=== PATIENT | male | born 1940 | race African-American/Black ===

== ENCOUNTER 2024-02-20 13:00 | Outpatient (AMB) | payer MEDICARE, SELFPAY ==
--- NOTE | 2024-02-20 13:01 | MHC.OFFVIS ---
Intake Visit Reasons: urinary incontinence Intake Note: New Patient presents for initial visit for incontinence Urology Medications: finasteride Blood Thinner: aspirin PVR: 10ml's Software Validation Engineer Required: No Accompanied by: Self / Same As Patient Allergies No Known Allergies [No Known Allergies*] Allergy (Unverified 02/20/24 13:41) Medication List - Last Reconciled 02/20/24 by CHARLOTTE Li aspirin 81 mg PO DAILY atorvastatin 80 mg PO DAILY asuotaqzi-xcszdlbu-cjgeurw ala 50-200-25 mg (Biktarvy) 1 tab PO DAILY cholecalciferol (vitamin D3) (Vitamin D3) 10 mcg PO DAILY finasteride 5 mg PO DAILY HPI Comments Details: Migue is a pleasantly confused 83-year-old male patient of Dr. Krause. He has a past medical history of right inguinal hernia, urinary incontinence, underweight, tobacco dependence, pulmonary nodule, hyperlipidemia, gait instability, elevated PSA, dementia, chronic kidney disease stage 3, CVA, bladder stones, BPH, and asymptomatic proteinuria. He presents to the office today as a new patient for urinary incontinence. In discussion with the patient today he reports noting episodes of unsensed urinary incontinence while sleeping 2-3 times per night. He reports these episodes are not each night however they are frequent. He otherwise denies any bothersome urinary issues while he is awake. In review of patient's chart it appears he has a history of an elevated PSA and is on finasteride however when asked he is unsure as to this past medical history. He reports he has no family however upon checkout it appears niece is in waiting room. We discussed at length potential causes of unsensed urinary incontinence while sleeping given patient's history of dementia as well as CVA. Will obtain retroperitoneal ultrasound and PSA for further assessment evaluation. In office urinalysis was unable to be performed as patient was unable to void however PVR 10 mL. When asked he denies urinary urgency, urinary frequency, hematuria, dysuria, foul smelling urine, changes to urinary stream, flank pain, fever, and or chills. At times throughout today's assessment patient is very vague. [facility] Medical History (Updated 02/21/24 @ 10:06 by CHARLOTTE Li) Right inguinal hernia Urinary incontinence Underweight Tobacco dependence Right hand weakness Pulmonary nodule Inguinal hernia Hyperlipidemia Glucose intolerance Gait instability Frailty Diverticulosis of sigmoid colon Dementia, vascular COVID-19 COPD with emphysema Cigarette smoker Chronic kidney disease, stage 3 Cerebrovascular disease Carotid stenosis Bladder stones Benign prostatic hyperplasia Asymptomatic proteinuria Abnormal weight loss Surgical History (Updated 02/20/24 @ 13:58 by Jaylon Seymour) History of appendectomy History of inguinal herniorrhaphy Review of Systems Const Unobtainable due to mental status Physical Exam Const General: cooperative, healthy appearing, comfortable, no acute distress, well developed, alert and awake Nutritional Appearance: thin Orientation/consciousness: oriented to person Limitations: ambulation with cane HEENT Head: Yes normal to inspection, Yes normocephalic and Yes atraumatic Ears: hearing grossly normal bilaterally Eyes General: appearance normal, both eyes and all related structures Neck Neck: Yes normal visual inspection and Yes trachea midline Chest Chest palpation & inspection: normal inspection of the chest Resp Effort & Inspection: normal respiratory effort and able to speak in complete sentences Cardio Rate: regular rate GI Inspection: Yes normal to inspection General: Yes no CVA tenderness Back/Spine/Pelvis Back: no CVA tenderness Skin General skin exam: no rashes or lesions noted Neuro General: oriented to person Extrem General: Yes normal to inspection Psych Appearance: grossly normal and well kempt Mental Status: mental status grossly normal Speech and movement: Normal speech and movement present and Clear speech present Affect: normal affect Attitude: cooperative Thought process: Normal thought process present Thought content: Normal thought content present Insight: Fair insight present (Psych) Judgement: Fair judgement present (Psych) Office Procedures Post Void Residual Post Residual Void Post Void Residual (PVR): 10 01511-[id number] Void Residual by ultrasound Assessment & Plan Assessment & Plan (1) Elevated PSA: Code(s): R97.20 - Elevated prostate specific antigen [PSA] Category: Medical (2) Urinary incontinence: Code(s): R32 - Unspecified urinary incontinence Category: Medical Plan Unable to obtain urine for urinalysis however PVR 10 mL. Discussed at length potential causes for lower urinary tract symptoms patient is experiencing. Discussed obtaining retroperitoneal ultrasound for further assessment evaluation. Will obtain PSA for further assessment evaluation. Continue finasteride as prescribed. Discussed, educated, and stressed the importance of limiting fluids 2-3 hours prior to bed to decrease episodes of unsensed urinary incontinence he is experiencing Follow-up in 1-3 months with imaging and labs to be completed prior; or sooner with any issues, concerns, and or questions. Orders: Orders AMB Post Void Residual by ultrasound 02/20/24 Z13.9 - Encounter for screening, unspecified PSA,Total (Free>4and<10) Today R97.20 - Elevated prostate specific antigen [PSA] US retroperitoneal comp Today R32 - Unspecified urinary incontinence, R97.20 - Elevated prostate specific antigen [PSA] Patient Instructions: The patient had an opportunity to ask questions regarding the treatment plan. All questions were answered. Physical exam, labs, and imaging were discussed and reviewed in detail. As well as risks, benefits, and discussion of treatment choices. No major barriers to understanding were identified. The patient expressed understanding and agreement with the above treatment plan. The patient was made aware they should contact our office by phone for worsening of their current condition, the appearance of new symptoms, or with any questions or concerns. Compliance is encouraged with any medications and follow up testing that is ordered. It is a privilege to be allowed the opportunity to participate in? your urological care.? Again, if you have any questions or concerns If you have any questions or concerns please do not hesitate to contact me. The office is [phone]. This note is constructed using voice recognition software. While every effort has been made to ensure accuracy sales enablement manager errors may have been included. Yours sincerely, CHARLOTTE Li Coding Level of Care Code New Pt Level 3 (38430) Diagnoses Elevated PSA R97.20 Urinary incontinence R32 CPT Codes Post Residual Void - PVR CPT Code: 75597-Kjjr Void Residual by ultrasound ([id number])
== END 2024-02-20 13:45 | disposition home or self-care (01) ==
PROVIDERS: PCP Internal Medicine; Visit Provider Nurse Practitioner Family
DX: R97.20 Elevated prostate specific antigen [PSA] (principal); R32 Unspecified urinary incontinence
CPT/HCPCS: 99203

== ENCOUNTER → 2024-02-20 13:00 | Outpatient (BNVA) | payer MEDICARE, SELFPAY | PROVIDERS: PCP Internal Medicine; Visit Provider Nurse Practitioner Family | DX: R32 Unspecified urinary incontinence (principal); R97.20 Elevated prostate specific antigen [PSA] | CPT/HCPCS: 51798; 99202 ==

== ENCOUNTER 2024-03-27 16:35 | Outpatient (REF) | payer MEDICARE, SELFPAY ==
--- NOTE | ~2024-03-27 | US_ITS ---
EXAMINATION: US RETROPERITONEAL LIMITED (RENAL ONLY) CLINICAL INFORMATION: Elevated prostate-specific. COMPARISON: None available. TECHNIQUE: Real-time ultrasound the kidneys using grayscale and color Doppler technique.. FINDINGS: RIGHT KIDNEY: 8 x 4 x 4 cm (SAG x AP x TRV). The kidney is normal in size, contour, and echogenicity. Renal cortical thickness is normal. No calculi or focal parenchymal lesions. No hydronephrosis. LEFT KIDNEY: 7 x 4 x 5 cm (SAG x AP x TRV). The kidney is normal in size, contour, and echogenicity. Renal cortical thickness is normal. No renal calculi or hydronephrosis. There is a large 8.0 cm exophytic anechoic lesion without septations or nodular components in the left kidney. US/US retroperitoneal limited IMPRESSION: No hydronephrosis. 8.0 cm exophytic cyst, left kidney.. Electronically signed by: Brian Hicks MD 04/16/2024 01:14 PM MARILY
== END 2024-03-27 16:36 | disposition home or self-care (01) ==
LOC: HO.US 16:35
PROVIDERS: PCP Internal Medicine; Visit Provider Nurse Practitioner Family
DX: R97.20 Elevated prostate specific antigen [PSA] (principal); R32 Unspecified urinary incontinence
CPT/HCPCS: 76775

== ENCOUNTER → 2024-03-27 16:36 | Outpatient (BNV) | payer MEDICARE, SELFPAY | PROVIDERS: PCP Internal Medicine; Visit Provider Radiology Diagnostic Radiology | DX: R97.20 Elevated prostate specific antigen [PSA] (principal) | CPT/HCPCS: 76775 ==

== ENCOUNTER 2024-04-03 15:16 | Outpatient (REF) | payer MEDICARE, SELFPAY ==
--- NOTE | ~2024-04-03 | US_ITS ---
EXAMINATION: US PELVIS LIMITED (BLADDER) CLINICAL INFORMATION: Urinary incontinence. COMPARISON: None available. TECHNIQUE: Real-time imaging of the bladder. FINDINGS: BLADDER: Bladder is fluid-filled. There is a 1 cm isoechoic abnormality in the dependent portion of the bladder without flow on color Doppler interrogation. There is a 0.8 cm hyperechoic lesion in a dependent portion of the urinary bladder lumen. Bilateral ureteral jets are demonstrated. Prevoid bladder volume is 180 mL. Postvoid bladder volume is 97 mL. US/US bladder IMPRESSION: Debris versus blood products versus less likely soft tissue lesion, posterior urinary bladder lumen. Questionable intraluminal calculus. Recommend direct inspection. 97 cc urinary retention. Electronically signed by: Brian Hicks MD 04/16/2024 01:17 PM [facility]
== END 2024-04-03 15:17 | disposition home or self-care (01) ==
LOC: HO.US 15:16
PROVIDERS: PCP Internal Medicine; Visit Provider Nurse Practitioner Family
DX: R97.20 Elevated prostate specific antigen [PSA] (principal); R32 Unspecified urinary incontinence
CPT/HCPCS: 76857

== ENCOUNTER → 2024-04-03 15:20 | Outpatient (BNV) | payer MEDICARE, SELFPAY | PROVIDERS: PCP Internal Medicine; Visit Provider Radiology Diagnostic Radiology | DX: R32 Unspecified urinary incontinence (principal) | CPT/HCPCS: 76857 ==

== ENCOUNTER 2024-04-09 14:35 | Outpatient (AMB) | payer MEDICARE, SELFPAY ==
--- NOTE | 2024-04-09 14:49 | A.OFFVIS_ITS ---
Intake Visit Reasons: 2m/US/PSA Intake Note: Patient presents today for follow up visit on: incontinence, elevated psa, psa and ultrasound lab results Imaging Completed: 03/27/24 and 04/03/24 Urology Medications: finasteride Blood Thinner: aspirin PVR: 28ml's Cdl B Driver Required: No Accompanied by: Self / Same As Patient Allergies No Known Allergies [No Known Allergies*] Allergy (Unverified 04/10/24 20:39) Medication List - Last Reconciled 04/10/24 by ROMA Li-ZEV aspirin 81 mg PO DAILY atorvastatin 80 mg PO DAILY wgfdkcmcy-bcfljwyn-kgmbstw ala 50-200-25 mg (Biktarvy) 1 tab PO DAILY cholecalciferol (vitamin D3) (Vitamin D3) 10 mcg PO DAILY finasteride 5 mg PO DAILY sulfamethoxazole-trimethoprim 800-160 mg (Bactrim DS) 1 tab PO BID 10 days HPI Comments Details: Migue is a pleasantly confused 83-year-old male patient of Dr. Krause. He has a past medical history of right inguinal hernia, urinary incontinence, underweight, tobacco dependence, pulmonary nodule, hyperlipidemia, gait instability, elevated PSA, dementia, chronic kidney disease stage 3, CVA, bladder stones, BPH, and asymptomatic proteinuria. He presents to the office today for a follow up. Of note, patient was seen approximately 6 weeks ago as a new patient for urinary incontinence at which time a retroperitoneal ultrasound and PSA were ordered for further assessment evaluation. These results were reviewed with the patient today. Bilateral kidneys are normal in size, contour, and echogenicity. Right kidney with no hydronephrosis, renal calculi, and or lesions noted. Left kidney with a large 8.0 cm exophytic anechoic lesion without septations or nodular components. The bladder is fluid-filled. There is a 1 cm isoechoic abnormality in the dependent portion of the bladder. There is a 0.8 cm hypoechoic lesion in the dependent portion of the urinary bladder lumen. Bilateral ureteral jets are demonstrated. Pre void bladder volume is 180 mL. Postvoid bladder volume is a proximally 100 mL. Debris versus blood products verses likely soft tissue lesion in the posterior urinary bladder lumen. Recommending direct inspection per radiology report. PSA 04/02 10.4. We discussed at length potential causes for elevated PSA. In office urinalysis results reviewed with the patient today. 3+ leukocytes negative nitrates. In discussion with the patient today he denies any UTI like symptoms however upon discussion with his niece she reports noting increase in foul smelling urine as he has baseline urinary incontinence since his dementia diagnosis. We discussed correlation of elevated PSA with potential urinary tract infection. Patient with a previous history of an elevated PSA per PCP notes and is on finasteride. However, niece and patient are unaware of previous history. When asked he denies urinary urgency, urinary frequency, hematuria, dysuria, changes to urinary stream, flank pain, fever, and or chills. At times throughout today's assessment patient is very vague. [facility], [facility] Medical History (Updated 04/16/24 @ 21:54 by AFSHIN Li) Right inguinal hernia Urinary incontinence Underweight Tobacco dependence Right hand weakness Pulmonary nodule Inguinal hernia Hyperlipidemia Glucose intolerance Gait instability Frailty Diverticulosis of sigmoid colon Dementia, vascular COVID-19 COPD with emphysema Cigarette smoker Chronic kidney disease, stage 3 Cerebrovascular disease Carotid stenosis Bladder stones Benign prostatic hyperplasia Asymptomatic proteinuria Abnormal weight loss Surgical History History of appendectomy History of inguinal herniorrhaphy Review of Systems Const Unobtainable due to mental status Physical Exam Const General: cooperative, healthy appearing, comfortable, no acute distress, well developed, alert and awake Nutritional Appearance: thin Orientation/consciousness: oriented to person Limitations: ambulation with cane HEENT Head: Yes normal to inspection, Yes normocephalic and Yes atraumatic Ears: hearing grossly normal bilaterally Eyes General: appearance normal, both eyes and all related structures Neck Neck: Yes normal visual inspection and Yes trachea midline Chest Chest palpation & inspection: normal inspection of the chest Resp Effort & Inspection: normal respiratory effort and able to speak in complete sentences Cardio Rate: regular rate GI Inspection: Yes normal to inspection General: Yes no CVA tenderness Back/Spine/Pelvis Back: no CVA tenderness Skin General skin exam: no rashes or lesions noted Neuro General: oriented to person Extrem General: Yes normal to inspection Psych Appearance: grossly normal and well kempt Mental Status: mental status grossly normal Speech and movement: Normal speech and movement present and Clear speech present Affect: normal affect Attitude: cooperative Thought process: Normal thought process present Thought content: Normal thought content present Insight: Fair insight present (Psych) Judgement: Fair judgement present (Psych) Office Procedures Post Void Residual Post Residual Void Post Void Residual (PVR): 28 [id number] Void Residual by ultrasound Results AMB Urinalysis, Automated UA Leukoctes 500 Harini/uL Last Edit by Jaylon Seymour on 04/09/24 16:24 UA Nitrite Negative Last Edit by Jaylon Seymour on 04/09/24 16:24 UA Urobilinogen 0.2 mg/dL Last Edit by [facility] Sto[employer] Seymour on 04/09/24 16:24 UA Protein 15 mg/dL Last Edit by [email or web address] on 04/09/24 16:24 UA pH 6.0 Last Edit by [email or web address] on 04/09/24 16:24 UA Blood 0 Ranjith/uL Last Edit by [email or web address] on 04/09/24 16:24 UA Specific [place] 1.030 Last Edit by [email or web address] on 04/09/24 16:24 UA Ketone Negative Last Edit by [email or web address] on 04/09/24 16:24 UA Bilirubin 1 mg/dL Last Edit by [email or web address] on 04/09/24 16:24 UA Glucose 0 mg/dL Last Edit by [email or web address] on 04/09/24 16:24 Results Reviewed Results Reviewed: Laboratory Last Values Urine pH (Auto) 6.0 04/09/24 16:19 Specific [place] (Auto) 1.030 04/09/24 16:19 Urine Protein (Auto) 15 mg/dL 04/09/24 16:19 Glucose (UA)(Auto) 0 mg/dL 04/09/24 16:19 Urine Ketones (Auto) Negative 04/09/24 16:19 Urine Blood (Auto) 0 Ranjith/uL 04/09/24 16:19 Urine Nitrite (Auto) Negative 04/09/24 16:19 Urine Bilirubin (Auto) 1 mg/dL 04/09/24 16:19 Urine Urobilinogen (Auto) 0.2 mg/dL 04/09/24 16:19 Leukocyte Esterase (Auto) 500 Harini/uL 04/09/24 16:19 Date of Service: 03/27/24 EXAMINATION: US RETROPERITONEAL LIMITED (RENAL ONLY) FINDINGS: RIGHT KIDNEY: 8 x 4 x 4 cm (SAG x AP x TRV). The kidney is normal in size, contour, and echogenicity. Renal cortical thickness is normal. No calculi or focal parenchymal lesions. No hydronephrosis. LEFT KIDNEY: 7 x 4 x 5 cm (SAG x AP x TRV). The kidney is normal in size, contour, and echogenicity. Renal cortical thickness is normal. No renal calculi or hydronephrosis. There is a large 8.0 cm exophytic anechoic lesion without septations or nodular components in the left kidney. IMPRESSION: No hydronephrosis. 8.0 cm exophytic cyst, left kidney. Date of Service: 04/03/24 EXAMINATION: US PELVIS LIMITED (BLADDER) FINDINGS: BLADDER: Bladder is fluid-filled. There is a 1 cm isoechoic abnormality in the dependent portion of the bladder without flow on color Doppler interrogation. There is a 0.8 cm hyperechoic lesion in a dependent portion of the urinary bladder lumen. Bilateral ureteral jets are demonstrated. Prevoid bladder volume is 180 mL. Postvoid bladder volume is 97 mL. IMPRESSION: Debris versus blood products versus less likely soft tissue lesion, posterior urinary bladder lumen. Questionable intraluminal calculus. Recommend direct inspection. 97 cc urinary retention. Assessment & Plan Assessment & Plan (1) Elevated PSA: Code(s): R97.20 - Elevated prostate specific antigen [PSA] Category: Medical (2) Urinary incontinence: Code(s): R32 - Unspecified urinary incontinence Category: Medical (3) Bladder stones: Code(s): N21.0 - Calculus in bladder Category: Medical (4) Lesion of urinary bladder: Code(s): N32.9 - Bladder disorder, unspecified Category: Medical Plan In office urinalysis results reviewed with the patient and his niece today; as noted above; will send for urine culture and urine cytology. Recent PSA results reviewed with the patient and his niece today; as noted above. Recent retroperitoneal ultrasound results reviewed with the patient his niece today as noted above. We discussed at length potential causes of elevated PSA. DONALD offered however deferred. We discussed correlation of urinary tract infections and elevated PSA. Discussed in office cystoscopy to further assess bladder sludge verses bladder stones as noted on recent retroperitoneal ultrasound. Continue finasteride. Start Bactrim as discussed and prescribed. Discuss reassessment of elevated PSA status post completion of antibiotic therapy and or further assessment of bladder stones. Follow-up in office cystoscopy; or sooner with any issues, concerns., and or questions. Orders: Orders AMB Urinalysis Automated 04/09/24 Z13.9 - Encounter for screening, unspecified AMB Post Void Residual by ultrasound 04/09/24 R32 - Unspecified urinary incontinence Urine Culture 04/09/24 R32 - Unspecified urinary incontinence Medications: New sulfamethoxazole-trimethoprim 800-160 mg (Bactrim DS) 1 tab PO BID 10 days 20 tabs 0RF N39.0 - Urinary tract infection, site not specified Patient Instructions: The patient had an opportunity to ask questions regarding the treatment plan. All questions were answered. Physical exam, labs, and imaging were discussed and reviewed in detail. As well as risks, benefits, and discussion of treatment choices. No major barriers to understanding were identified. The patient expressed understanding and agreement with the above treatment plan. The patient was made aware they should contact our office by phone for worsening of their current condition, the appearance of new symptoms, or with any questions or concerns. Compliance is encouraged with any medications and follow up testing that is ordered. It is a privilege to be allowed the opportunity to participate in? your urological care.? Again, if you have any questions or concerns If you have any questions or concerns please do not hesitate to contact me. The office is [phone]. This note is constructed using voice recognition software. While every effort has been made to ensure accuracy paper bag making machinist errors may have been included. Yours sincerely, CHARLOTTE Li Coding Level of Care Code Est Pt Level 4 (98031) Complex EM visit Add On G2211 Diagnoses Elevated PSA R97.20 Urinary incontinence R32 Bladder stones N21.0 Lesion of urinary bladder N32.9 CPT Codes Post Residual Void - PVR CPT Code: 55364-Enae Void Residual by ultrasound ([id number]) Time Spent (min) 30
== END 2024-04-09 16:28 | disposition home or self-care (01) ==
LOC: HO.HUSH 14:35
PROVIDERS: PCP Internal Medicine; Visit Provider Nurse Practitioner Family
DX: R97.20 Elevated prostate specific antigen [PSA] (principal); R32 Unspecified urinary incontinence; N21.0 Calculus in bladder; N32.9 Bladder disorder, unspecified
CPT/HCPCS: 99214; G2211

== ENCOUNTER 2024-04-09 14:35 | Outpatient (REF) | payer MEDICARE, SELFPAY ==
[2024-04-09 17:06] LABS: PSA,Total (Free>4and<10) 10.37 ng/mL (0.00-4.00)
== END 2024-04-09 14:36 | disposition home or self-care (01) ==
LOC: HO.LAB 14:35
PROVIDERS: PCP Internal Medicine; Visit Provider Nurse Practitioner Family
DX: R97.20 Elevated prostate specific antigen [PSA] (principal); R32 Unspecified urinary incontinence; N21.0 Calculus in bladder; N32.9 Bladder disorder, unspecified; Z12.5 Encounter for screening for malignant neoplasm of prostate
CPT/HCPCS: 36415; 51798; 81003; 84153; 99212

== ENCOUNTER 2024-04-09 16:35 | Outpatient (REF) | payer MEDICARE, SELFPAY | END 2024-04-09 16:36 | disposition home or self-care (01) | LOC: HO.LNP 16:35 | PROVIDERS: Visit Provider Nurse Practitioner Family | DX: R32 Unspecified urinary incontinence (principal) | CPT/HCPCS: 87086 ==

== ENCOUNTER 2024-04-29 15:02 | Outpatient (AMB) | payer MEDICARE, SELFPAY ==
--- NOTE | 2024-04-29 15:24 | A.OFFVIS_ITS ---
Intake Visit Reasons: cysto/Bladder Stones Intake Note: Patient is present for Cystoscopy Urology Med: Finasteride Antibiotic Allergy: None Blood Thinner: Aspirin Last PVR: 28ML LAB: 04/09/2024 -PSA: 10.37 Imagin04/03/24 - Bladder Ultrasound 04/03/24 URO G-HD Disposable Cystoscope LOT: [id number] EXP: 09/18/26 Pv Design And Installation Technician Required: No Accompanied by: Self / Same As Patient Allergies No Known Allergies [No Known Allergies*] Allergy (Verified 04/29/24 15:38) HPI Comments Details: Migue is a pleasant male. He is a patient of Dr. Dominik Harris. He is seen for the following urologic conditions - lower urinary tract symptoms - UTI - elevated PSA - bladder stones Here for cystoscopy after initial review with nurse-practitioner Responded well to antibiotics for UTI at last visit - prior culture mixed Imaging with question of 1 cm bladder stone Elevated PSA 10.4 in setting of UTI and bladder stone Background of dementia Cystoscopy shows grade 2/3 trabeculation Debris within the bladder that was probably read as stone on ultrasound Evidence of prior TURP - 2018 Recommend cystoscopy, revision GreenLight and removal of bladder debris [facility] Medical History (Updated 05/03/24 @ 20:50 by Jose Gold MD) Right inguinal hernia Urinary incontinence Underweight Tobacco dependence Right hand weakness Pulmonary nodule Inguinal hernia Hyperlipidemia Glucose intolerance Gait instability Frailty Diverticulosis of sigmoid colon Dementia, vascular COVID-19 COPD with emphysema Cigarette smoker Chronic kidney disease, stage 3 Cerebrovascular disease Carotid stenosis Bladder stones Benign prostatic hyperplasia Asymptomatic proteinuria Abnormal weight loss Surgical History History of appendectomy History of inguinal herniorrhaphy Review of Systems Const Denies chills and Denies fever(s) Card Reports no additional complaints and Denies syncope Resp Denies cough GI Denies abdominal pain and Denies heartburn Reports as per HPI and Denies change in libido Neuro Denies syncope Psych Denies change in libido Endo Denies change in libido Physical Exam Const General: cooperative, healthy appearing, comfortable and no acute distress Orientation/consciousness: patient oriented x3 HEENT Face and sinus: Yes normal facial exam Mouth: moist mucous membranes Neck Neck: Yes normal visual inspection, Yes full ROM and Yes trachea midline Chest Chest palpation & inspection: normal inspection of the chest Resp Effort & Inspection: normal respiratory effort, able to speak in complete sentences and no respiratory distress GI Inspection: Yes normal to inspection Back/Spine/Pelvis Cervical Spine: normal cervical lordosis Thoracic/Lumbar Spine: thoracic and lumbar spine normal to inspection Skin General skin exam: no rashes or lesions noted Neuro General: patient oriented x3, gait normal, tone normal and moves all extremities Extrem General: Yes normal to inspection and Yes capillary refill normal Office Procedures Cystoscopy Consent Discussed risk and benefit or proposed procedure with the patient. Information consent for procedure given to the patient. Discussed technical aspects, risks, benefits and alternatives in full. Addressed all of the patient's questions and concerns regarding the procedure. The patient demonstrated knowledge and understanding. They wish to proceed with this procedure. Preparation The patient was prepped in the usual manner. A mobile practice lead was present and in the room. Genitalia was prepped with betadine solution in a sterile manner. Lidocaine Jelly 2% was placed into the urethra and 16Fr flexible Olympus cystoscope was inserted into the meatus after adequate lubrication. Cystoscopy performed using a disposable Urovue digital 16 Frisian cystoscope. Meatus uncircumcised Urethra anterior and posterior urethra normal Prostatic Urethra regrowth anterior tissue Bladder examination with retroflexion of cystoscope Bladder Orifices normal shape and position Bladder Capacity median Trabeculations grade 2/3 Cellule Formation Yes No Diverticulum Formation - Mucosal Erythema - Bladder Tumor - [id number] DISPOSABLE SCOPE URO-G FLEXIBLE SCOPE Procedure code (CPT) selection complete Office Meds lidocaine HCl 2 % mucosal jelly in applicator Performing Provider: Jose Gold MD Performing Location: [facility] Administered by: MERCEDES Sanchez on 04/29/24 15:50 Dose Route Admin Location Dispensed Lot Number Expiration Date [facility] Plant Maintenance Supervisor 10 mL intra-urethral 10 mL nitrofurantoin monohydrate/macrocrystals 100 mg capsule Performing Provider: Jose Gold MD Performing Location: [facility] Administered by: MERCEDES Sanchez on 04/29/24 15:50 Dose Route Admin Location Dispensed Lot Number Expiration Date [facility] Plant Maintenance Supervisor 100 mg PO 1 cap naproxen 500 mg tablet Performing Provider: Jose Gold MD Performing Location: [facility] Administered by: MERCEDES Sanchez on 04/29/24 15:50 Dose Route Admin Location Dispensed Lot Number Expiration Date [facility] Plant Maintenance Supervisor 500 mg PO 1 tab Results AMB Urinalysis, Automated UA Leukoctes 0 Harini/uL Last Edit by Yudy Joya Pablo on 04/29/24 15:51 UA Nitrite Negative Last Edit by Yudy Joya, A on 04/29/24 15:51 UA Urobilinogen 0.2 mg/dL Last Edit by Yudy Joya A on 04/29/24 15:5 1 UA Protein 15 mg/dL Last Edit by Yudy Joya A on 04/29/24 15:51 UA pH 5.5 Last Edit by Yudy Joya A on 04/29/24 15:51 UA Blood 0 Ranjith/uL Last Edit by Yudy Joya, A on 04/29/24 15:51 UA Specific [place] 1.025 Last Edit by Yudy Joya A on 04/29/24 15: 51 UA Ketone Negative Last Edit by Yudy Joya [facility] on 04/29/24 15:51 UA Bilirubin 0 mg/dL Last Edit by Yudy oJya A on 04/29/24 15:51 UA Glucose 0 mg/dL Last Edit by Yudy Joya [facility] on 04/29/24 15:51 Results Reviewed Results Reviewed: Laboratory Last Values Urine pH (Auto) 5.5 04/29/24 15:39 Specific [place] (Auto) 1.025 04/29/24 15:39 Urine Protein (Auto) 15 mg/dL 04/29/24 15:39 Glucose (UA)(Auto) 0 mg/dL 04/29/24 15:39 Urine Ketones (Auto) Negative 04/29/24 15:39 Urine Blood (Auto) 0 Ranjith/uL 04/29/24 15:39 Urine Nitrite (Auto) Negative 04/29/24 15:39 Urine Bilirubin (Auto) 0 mg/dL 04/29/24 15:39 Urine Urobilinogen (Auto) 0.2 mg/dL 04/29/24 15:39 Leukocyte Esterase (Auto) 0 Harini/uL 04/29/24 15:39 Assessment & Plan Assessment & Plan (1) Bladder stones: Code(s): N21.0 - Calculus in bladder Category: Medical (2) Recurrent UTI (urinary tract infection): Code(s): N39.0 - Urinary tract infection, site not specified Category: Medical Plan Risks, benefits and alternatives to therapy were discussed. These include but are not limited to infection, bleeding, damage to local organs and tissues, need for further interventions. Anesthetic risks regarding cardiac arrhythmia, blood clots, and potential mortality were discussed. The patient understands the typical recovery time and the outpatient nature of the procedure. After consideration of these risks the patient gives full informed consent and they wish to move ahead with the procedure. plan operative cystoscopy, revision TURP with GreenLight and drainage of debris from bladder Orders: Orders AMB Cystoscopy 04/29/24 N32.9 - Bladder disorder, unspecified AMB Urinalysis Automated 04/29/24 Z13.9 - Encounter for screening, unspecified Patient Instructions: Imaging studies, laboratory and physical exam results were discussed and reviewed in detail. No major barriers to patient understanding were identified. An opportunity to ask questions regarding the treatment plan was provided. All questions were answered. The patient expressed understanding and agreement with the above treatment plan. The patient is aware they should contact our office by phone for worsening of their current condition or the appearance of new urologic symptoms. Compliance is encouraged with any medications and followup testing that is ordered. It is a privilege to participate in the urologic care of your patient. If you have any questions or concerns regarding treatment for the above conditions, or other urologic issues, please do not hesitate to contact me. The office telephone contact is [phone]. This note is constructed using voice recognition software. While every effort has been made to ensure accuracy billing control clerk errors may have been included. Yours sincerely, Dr Jose Gold MD, [facility] - Urology Providers of Expert, Compassionate Care for the Genitourinary System Coding Level of Care Code Est Pt Level 4 (78207) Diagnoses Bladder stones N21.0 Recurrent UTI (urinary tract infection) N39.0 CPT Codes Cystoscopy - CPT: 96183-[id number] ([id number])
== END 2024-04-29 16:26 | disposition home or self-care (01) ==
PROVIDERS: PCP Internal Medicine; Visit Provider Urology
DX: N32.89 Other specified disorders of bladder (principal); N39.0 Urinary tract infection, site not specified
CPT/HCPCS: 52000; 99214

== ENCOUNTER → 2024-04-29 15:02 | Outpatient (BNVA) | payer MEDICARE, SELFPAY | PROVIDERS: PCP Internal Medicine; Visit Provider Urology | DX: N21.0 Calculus in bladder (principal); N39.0 Urinary tract infection, site not specified; R97.20 Elevated prostate specific antigen [PSA] | CPT/HCPCS: 52000; 81003; 99212 ==

== ENCOUNTER 2024-06-22 11:13 | Day surgery (SDC) | payer OTHER, SELFPAY ==
[2024-06-18 10:49] VITALS: BMI 17.0
--- NOTE | 2024-06-18 12:04 | HO.ANESPROP2 ---
Documented by User: Carolina Carr NP 06/18/24 12:11 HPI - Anesthesia Eval Consult details Narrative: 84yo M for Laser Ablation Prostate w/Green Light High frailty Some dementia HIV - suppressed on Biktarvy COPD Hx CVA s/p L CEA 2019 - per [facility] vascular visit note 05/2023, imaging stable/ favorable PMFSH Active Problems Active Problems: All Active Problems Recurrent UTI (urinary tract infection) (Acute) Lesion of urinary bladder (Acute) Elevated PSA (Acute) Bladder stones (Acute) Urinary incontinence (Acute) Past Medical History Medical History (Updated 06/18/24 @ 10:45 by Reshma Jha RN) HIV (human immunodeficiency virus infection) Right inguinal hernia Urinary incontinence Underweight Tobacco dependence Right hand weakness Pulmonary nodule Inguinal hernia Hyperlipidemia Glucose intolerance Gait instability Frailty Diverticulosis of sigmoid colon Dementia, vascular COPD with emphysema Cigarette smoker Chronic kidney disease, stage 3 Cerebrovascular disease Carotid stenosis Bladder stones Benign prostatic hyperplasia Asymptomatic proteinuria Abnormal weight loss Surgical History Surgical History (Updated 06/18/24 @ 10:35 by Reshma Jha RN) History of left-sided carotid endarterectomy History of appendectomy History of inguinal herniorrhaphy Social History Social History (Updated 06/18/24 @ 10:49 by Reshma Jha RN) Housing: Apartment Patient Tobacco Use Status: Current everyday Tobacco user Tobacco use type: Cigarette Cigarettes Per Day: 10 Use of substances other than those prescribed or required for medical reasons: No Have you been hit, kicked, punched, or otherwise hurt by someone within the past year? If so, by whom?: No Are you DNR?: No Advance Directives: No Advance Directives Information Provided: Yes Recently lost weight without trying: No Nutrition Risks: No Nutritional Risk Meds Allergies Allergy/AdvReac Type Severity Reaction Status Date / Time No Known Allergies Allergy Verified 06/22/24 11:20 [No Known Allergies*] Home Medications ?Medication ?Instructions ?Recorded ?Confirmed ?Last Taken ?Type aspirin 81 mg tablet,delayed 81 mg PO DAILY 02/20/24 06/18/24 Unknown History release atorvastatin 80 mg tablet 80 mg PO DAILY 02/20/24 06/18/24 Unknown History bictegravir 50 mg-emtricitabine 1 tab PO DAILY 02/20/24 06/18/24 Unknown History 200 mg-tenofovir alafenam 25 mg tablet (Biktarvy) cholecalciferol (vitamin D3) 10 10 mcg PO DAILY 02/20/24 06/18/24 Unknown History mcg (400 unit) tablet (Vitamin D3) finasteride 5 mg tablet 5 mg PO DAILY 02/20/24 06/18/24 Unknown History albuterol sulfate 90 mcg/actuation 2 puff inhalation Q4-6H PRN 06/18/24 06/18/24 Unknown History aerosol inhaler (Ventolin HFA) Shortness Of Breath Or Wheezing sennosides 8.6 mg tablet (senna) 8.6 mg PO BEDTIME 06/18/24 06/18/24 Unknown History Exam Height,Weight and Vital Signs: Height 5 ft 6.14 in Weight 48 kg Pertinent Lab Results Pertinent Lab Results: BMP and CBC 09/2023 from [facility] [place] Assessment and Plan Assessment Anesthesia Assessment: Chart Reviewed Documented by User: Eulogio Vences MD 06/22/24 11:51 [facility] Past Medical History Medical History (Updated 06/18/24 @ 10:45 by Reshma Jha RN) HIV (human immunodeficiency virus infection) Right inguinal hernia Urinary incontinence Underweight Tobacco dependence Right hand weakness Pulmonary nodule Inguinal hernia Hyperlipidemia Glucose intolerance Gait instability Frailty Diverticulosis of sigmoid colon Dementia, vascular COPD with emphysema Cigarette smoker Chronic kidney disease, stage 3 Cerebrovascular disease Carotid stenosis Bladder stones Benign prostatic hyperplasia Asymptomatic proteinuria Abnormal weight loss Family History Family history of problems with anesthesia: No Surgical History Surgical History (Updated 06/18/24 @ 10:35 by Reshma Jha RN) History of left-sided carotid endarterectomy History of appendectomy History of inguinal herniorrhaphy History of Problems with Anesthesia: No Social History Social History (Updated 06/18/24 @ 10:49 by Reshma Jha RN) Housing: Apartment Patient Tobacco Use Status: Current everyday Tobacco user Tobacco use type: Cigarette Cigarettes Per Day: 10 Use of substances other than those prescribed or required for medical reasons: No Have you been hit, kicked, punched, or otherwise hurt by someone within the past year? If so, by whom?: No Are you DNR?: No Advance Directives: No Advance Directives Information Provided: Yes Recently lost weight without trying: No Nutrition Risks: No Nutritional Risk Meds Allergies Allergy/AdvReac Type Severity Reaction Status Date / Time No Known Allergies Allergy Verified 06/22/24 11:20 [No Known Allergies*] Home Medications ?Medication ?Instructions ?Recorded ?Confirmed ?Last Taken ?Type aspirin 81 mg tablet,delayed 81 mg PO DAILY 02/20/24 06/18/24 Unknown History release atorvastatin 80 mg tablet 80 mg PO DAILY 02/20/24 06/18/24 Unknown History bictegravir 50 mg-emtricitabine 1 tab PO DAILY 02/20/24 06/18/24 Unknown History 200 mg-tenofovir alafenam 25 mg tablet (Biktarvy) cholecalciferol (vitamin D3) 10 10 mcg PO DAILY 02/20/24 06/18/24 Unknown History mcg (400 unit) tablet (Vitamin D3) finasteride 5 mg tablet 5 mg PO DAILY 02/20/24 06/18/24 Unknown History albuterol sulfate 90 mcg/actuation 2 puff inhalation Q4-6H PRN 06/18/24 06/18/24 Unknown History aerosol inhaler (Ventolin HFA) Shortness Of Breath Or Wheezing sennosides 8.6 mg tablet (senna) 8.6 mg PO BEDTIME 06/18/24 06/18/24 Unknown History Exam Airway Mallampati Class: I TM Dist: >3cm Neck ROM: Full Denture: Upper and Lower Heart: ok Lungs: ok. sat 95% ra. Assessment and Plan Assessment Anesthesia Assessment: Anesthesia Plan Discussed Final Anesthetic Review Family History of Problems with Anesthesia: No History of Problems with Anesthesia: No NPO: Yes ASA Class: IV and V Final Preanesthetic Review: No Changes in Pt Med Stat, Meds/Allgs Chart Reviewed, Consent Obtained/Reviewed and Anes Risks/Benef Reviewed Patient Risk: High Procedure Risk: Low Anesthetic Plan Anesthetic Plan: Spinal and Agree w/ Assess. and Plan Disposition: Standard PACU
[2024-06-22] VITALS (10 sets, daily range): BP systolic 114–155; BP diastolic 56–87; PULSE 53–81; RESP 14–18; TEMP 36.2–36.8; O2SAT 95–99; BMI 14.2
[2024-06-22] MEDS: Lactated Ringers 1,000 ML 100 ML IVCONT (11:35)
--- NOTE | 2024-06-22 11:53 | MHC.SHP ---
Pre-Procedural Eval Section A - 24 Hr Update-Section A only Date of Service: 06/22/24 The patient is an INPATIENT: No Changes since office visit: No Cold of Flu in the past 2 weeks, No New Medical Problems, No Changes in Medication and No Patient answered all questions The patient has been examined within 24 hours of the surgical procedure. The History & Physical has been completed within 30 days and I have reviewed it.: Yes Section B - Complete if H&P > 30 days Chief Complaint: Bladder-neck obstruction Details of Present Illness: greenlight laser prostatectomy Relevant Social History: None Present Medications: see Short Stay Collaborative assessment Medical History: Significant History History of Previous Operations: No relevant previous surgery Allergies: Allergies Allergy/AdvReac Type Severity Reaction Status Date / Time No Known Allergies Allergy Verified 06/22/24 11:20 [No Known Allergies*] Review of Systems Sugical H&P ROS: Negative: Constitution, Cardiovascular, Respiratory, Neurological, Psychiatric, Hem-Onc, Allergic/Immunologic, Gastrointestinal, Genitourinary, Musculoskeletal, Integumentary, Endocrine and Eyes/Ears/Nose/Throat Exam Surgical H&P Exam: Normal: HEENT, Normal: Heart, Normal: Lungs, Normal: Extremities, Normal: Abdomen, Normal: Skin and Normal: Neurological Plan Diagnosis/Plan: Unchanged I have reviewed the history and physical and performed a pertinent physical examination on my patient. No changes have occurred unless specified. Time Spent With Patient Time: Total time managing care of this patient today ____ minutes.
[2024-06-22] MEDS: Sennosides 8.6 MG TABLET PO (20:22)
[2024-06-23] VITALS: BP 135/74; PULSE 61; RESP 18; TEMP 36.6; O2SAT 97
[2024-06-23 04:00] VITALS: BP 118/79; PULSE 63; RESP 18; TEMP 36.5; O2SAT 95
[2024-06-23 07:51] VITALS: BP 115/70; PULSE 63; RESP 18; TEMP 37.2; O2SAT 96
[2024-06-23] MEDS: Atorvastatin Calcium 80 MG TABLET PO (08:22)
[2024-06-23] MEDS: Bictegrav/Emtricit/Tenofov Ala TABLET 1 TAB PO (08:22)
--- NOTE | 2024-06-23 09:21 | HO.POSTANES ---
Post Anesthesia Evaluation Post Anesthesia Evaluation Date of Service: 06/23/24 Vital Signs: Vital Signs Temp Pulse Resp BP Pulse Ox O2 Del Method 06/23/24 07:51 98.9 F 63 18 115/70 96 Room Air 06/23/24 04:00 97.7 F 63 18 118/79 95 Room Air 06/23/24 00:00 97.9 F 61 18 135/74 97 Room Air Anesthesia: General Mental Status: Awake Pain Control: Satisfactory Nausea/Vomiting: None Hydration: Adequate Anesthesia-Related Issues: No Anes. Related Issues
[2024-06-23 11:37] VITALS: BP 131/81; PULSE 64; RESP 18; TEMP 37.1; O2SAT 100
--- NOTE | 2024-06-23 12:24 | MHC.CM.PN ---
PT LIVES ALONE HAS A LOAN DOCUMENTATION SPECIALIST AND A LOCKED BOX THRU [facility]IECE WILL BRING HIM HOME
--- NOTE | 2024-06-23 15:22 | PM.DS ---
DS: Providers Provider Date of Service: 06/23/24 Date of discharge: 06/23/24 Primary care physician: Meagan Krause MD DS: Diagnosis Discharge Diagnosis (1) Bladder stones: Status: Acute (2) Urinary incontinence: Status: Acute (3) Recurrent UTI (urinary tract infection): Status: Acute DS: Summary Hospital Course Hospital Course: Procedure performed Saturday Remain overnight for safety with indwelling catheter as has baseline impaired memory Catheter removed on Saturday Time spent discussing smoking cessation with patient: 3 to 10 minutes Status at Discharge Functional status at discharge: independent ambulation Overall status at discharge: patient is back to baseline Time Attestation Total time managing care of this patient today: 10 mintues. Discharge Coordination Time (in mins): 5 Quality: Safe Use of Opioids Does Pt have an Active Cancer Diagnosis on the Problem List?: No Quality: Stroke Does the patient have a stroke diagnosis?: No Physical Exam Vital Signs: Vital Signs: Last Vital Signs Temp 98.8 F 06/23/24 11:37 Pulse 64 06/23/24 11:37 Resp 18 06/23/24 11:37 BP 131/81 06/23/24 11:37 Pulse Ox 100 06/23/24 11:37 O2 Del Method Room Air 06/23/24 11:37 BMI result Body Mass Index 14.2 Discharge Plan Discharge Patient Disposition: Home Health Service Referrals: [facility] [Other] - 1 Week Meagan Krause MD [Primary Care Provider] - 1 Week Discharge Medications: Continued sennosides [senna] 8.6 mg Tablet 8.6 mg PO BEDTIME albuterol sulfate [Ventolin HFA] 90 mcg/actuation Hfa Aerosol Inhaler 2 puff INHALATION Q4-6H PRN (Reason: Shortness Of Breath Or Wheezing) finasteride 5 mg tablet 5 mg PO DAILY aspirin 81 mg tablet,delayed release (DR/EC) 81 mg PO DAILY atorvastatin 80 mg tablet 80 mg PO DAILY Biktarvy 50-200-25 mg tablet 1 tab PO DAILY cholecalciferol (vitamin D3) [Vitamin D3] 10 mcg (400 unit) tablet 10 mcg PO DAILY Discharge Orders: Discharge Order (Routine); Ordered 06/23/24 Ordered By: Jose Gold Diet: Advance to usual diet Activity on Discharge: As tolerated Print Language: Japanese
--- NOTE | 2024-06-23 15:22 | MHC.CM.PN ---
pt dcd home w/john
--- NOTE | 2024-07-16 14:26 | P.OP_ITS ---
Operative Note Operative Note Date of Service: 06/22/24 Narrative: PreOperative Diagnosis: Bladder outlet obstruction Post Operative Diagnosis: Bladder outlet obstruction Procedure: GreenLight Laser Enucleation of the prostate CPT 90354 Surgeon: Dr Jose Gold Anesthesia: General History of bladder outlet obstruction. Treated with alpha-magy and other medications. Still with symptoms. On cystoscopy in office has tight bladder neck. Recommendation for prostate procedure with laser enucleation of prostate. Risks and benefits have been discussed. Focus was placed on development of retrograde ejaculation which is a normal part of this procedure. Procedure: After informed consent was verified the patient was brought to the operating room and placed in a supine position. Anesthesia was administered per protocol. Patient was placed in modified dorsal lithotomy position and prepped and draped in a sterile fashion. Safety pause time-out was confirmed. Antibiotics have been given. A Twenty-four Marshallese laser cystoscope was inserted per urethra. No abnormalities were found of the anterior and bulbar urethra. The prostatic urethra shows tight bladder neck. The bladder was examined and both ureteric orifices were seen in their normal positions away from the area of interest. Bladder trabeculation Grade 1. Using a GreenLight laser with initial settings of 80 schwartz incisions were made at the 5 and 7 o'clock position. The incisions were taken down from the bladder neck down to the area just proximal of the veru. These were gradually deepened in order to define the lateral aspects of the median lobe area. The deep boundary of enucleation was defined by the prostate surgical capsule. Once clearly defined the grooves were extended in the lateral directions in order to create a deep groove. The median lobe was then ablated and enucleated tissue released into the bladder with the laser power increased to 120 W. - small median lobe with attention directed on lateral incisions Once the median lobe area had been cleared, attention was directed to the lateral lobes. Starting with the patient's left lateral lobe. First the 05:00 o'clock groove was further developed. This was moved in the lateral direction to undermine the tissue on the lateral side running from the bladder neck to the prostate apex. The ureteric orifice was used to guide incisions. Minimal lateral lobes. Decision made to focus on enlarging then 05:00 o'clock and 07:00 o'clock grooves in a lateral direction. At completion debris and pieces of prostate were removed from the bladder with irrigation. Both ureteric orifices were reviewed again in shown to be patent in away from any areas of energy damage. The apical area was reviewed and any stray mucosal ooze was controlled. A 22 Marshallese 30 cc balloon Gotti catheter was placed into the bladder using a flexible stylet. Clear efflux was obtained upon irrigation with a Funmilayo piston syringe. [30] cc was placed in the balloon and gentle traction was placed. A snap was used to hold tension on the catheter to control bleeding during patient moved and transported. A drainage bag was placed. Once transportation is complete to the PACU the snap will be removed. The patient tolerated the procedure well, he was extubated in the operating and transferred in a stable condition to the recovery area. Total Power [] kW Lasing time [] Pathology: Prostate tissue Drains: Gotti catheter
== END 2024-06-23 16:22 | disposition home health service (06) ==
LOC: HO.SSS 13:28 → HO.S3 13:38
PROVIDERS: PCP Internal Medicine; Visit Provider Urology
PROC: (CPT 52648; principal; 2024-06-22 12:40)
DX: N32.0 Bladder-neck obstruction (principal); N21.0 Calculus in bladder; R32 Unspecified urinary incontinence; N39.0 Urinary tract infection, site not specified; N18.30 Chronic kidney disease, stage 3 unspecified; F03.90 Unspecified dementia, unspecified severity, without behavioral disturbance, psychotic disturbance, mood disturbance, and anxiety; Z86.73 Personal history of transient ischemic attack (TIA), and cerebral infarction without residual deficits; J44.9 Chronic obstructive pulmonary disease, unspecified; B20 Human immunodeficiency virus [HIV] disease; R91.1 Solitary pulmonary nodule; Z79.82 Long term (current) use of aspirin; Z79.899 Other long term (current) drug therapy; F17.210 Nicotine dependence, cigarettes, uncomplicated; Z98.890 Other specified postprocedural states
CPT/HCPCS: 52649; C1758; J1956; J2003; J2704; J3010

== ENCOUNTER → 2024-06-22 11:13 | Outpatient (BNV) | payer OTHER, SELFPAY | PROVIDERS: PCP Internal Medicine; Visit Provider Urology | DX: N21.0 Calculus in bladder (principal); R32 Unspecified urinary incontinence; N39.0 Urinary tract infection, site not specified | CPT/HCPCS: 99024 ==

== ENCOUNTER → 2024-06-24 10:46 | Outpatient (BNVA) | payer OTHER, SELFPAY | PROVIDERS: PCP Internal Medicine; Visit Provider Urology ==

== ENCOUNTER 2024-08-07 15:45 | Outpatient (AMB) | payer OTHER, SELFPAY ==
--- NOTE | 2024-08-07 15:47 | A.OFFVIS_ITS ---
Intake Visit Reasons: Greenlight- PVR follow up Intake Note: Pt presents to the office today for a follow up greenlight/PVR. PVR:54mL Allergies No Known Allergies [No Known Allergies*] Allergy (Verified 08/07/24 15:47) HPI Comments Details: Migue is a pleasant male. He is a patient of Dr. Dominik Harris. He is seen for the following urologic conditions - lower urinary tract symptoms - UTI - elevated PSA - bladder stones Follow-up from revision GreenLight laser PVR 54 Dementia is leading to a loss of urinary control centers Recommend timed voiding to his niece Will also start methenamine with vitamin-C Six-month follow-up will stop finasteride Lower urinary tract symptoms with bladder stones and incomplete bladder emptying Imaging with question of 1 cm bladder stone Elevated PSA 10.4 in setting of UTI and bladder stone Background of dementia Cystoscopy shows grade 2/3 trabeculation Debris within the bladder that was probably read as stone on ultrasound Evidence of prior TURP - 2018 Revision GreenLight laser 08/03 [facility], [facility] Medical History HIV (human immunodeficiency virus infection) Right inguinal hernia Urinary incontinence Underweight Tobacco dependence Right hand weakness Pulmonary nodule Inguinal hernia Hyperlipidemia Glucose intolerance Gait instability Frailty Diverticulosis of sigmoid colon Dementia, vascular COPD with emphysema Cigarette smoker Chronic kidney disease, stage 3 Cerebrovascular disease Carotid stenosis Bladder stones Benign prostatic hyperplasia Asymptomatic proteinuria Abnormal weight loss Surgical History History of left-sided carotid endarterectomy History of appendectomy History of inguinal herniorrhaphy Social History Housing: Apartment Patient Tobacco Use Status: Current everyday Tobacco user Tobacco use type: Cigarette Cigarettes Per Day: 5 Second Hand Smoke Exposure: No service: No Review of Systems Const Denies chills and Denies fever(s) Card Reports no additional complaints and Denies syncope Resp Denies cough GI Denies abdominal pain and Denies heartburn Reports as per HPI and Denies change in libido Neuro Denies syncope Psych Denies change in libido Endo Denies change in libido Physical Exam Const General: cooperative, healthy appearing, comfortable and no acute distress Orientation/consciousness: patient oriented x3 HEENT Face and sinus: Yes normal facial exam Mouth: moist mucous membranes Neck Neck: Yes normal visual inspection, Yes full ROM and Yes trachea midline Chest Chest palpation & inspection: normal inspection of the chest Resp Effort & Inspection: normal respiratory effort, able to speak in complete sentences and no respiratory distress GI Inspection: Yes normal to inspection Back/Spine/Pelvis Cervical Spine: normal cervical lordosis Thoracic/Lumbar Spine: thoracic and lumbar spine normal to inspection Skin General skin exam: no rashes or lesions noted Neuro General: patient oriented x3, gait normal, tone normal and moves all extremities Extrem General: Yes normal to inspection and Yes capillary refill normal Office Procedures Post Void Residual Post Residual Void Post Void Residual (PVR): 54 [id number] Void Residual by ultrasound Assessment & Plan Assessment & Plan (1) Bladder stones: Code(s): N21.0 - Calculus in bladder Category: Medical (2) Recurrent UTI (urinary tract infection): Code(s): N39.0 - Urinary tract infection, site not specified Category: Medical (3) Bladder outlet obstruction: Code(s): N32.0 - Bladder-neck obstruction Category: Medical Plan Start vitamin-C and methenamine Six-month follow-up Orders: Orders AMB Post Void Residual by ultrasound Today R32 - Unspecified urinary incontinence Medications: New ascorbic acid (vitamin C) 1 g PO DAILY 90 days 90 tabs 1RF N39.0 - Urinary tract infection, site not specified methenamine hippurate 1 g PO DAILY 90 days 90 tabs 1RF N39.0 - Urinary tract infection, site not specified Patient Instructions: This note is constructed using voice recognition software. While every effort has been made to ensure accuracy support engineer errors may have been included. Imaging studies, laboratory and physical exam results were discussed and reviewed in detail. No major barriers to patient understanding were identified. An opportunity to ask questions regarding the treatment plan was provided. All questions were answered. The patient expressed understanding and agreement with the above treatment plan. The patient is aware they should contact our office by phone for worsening of their current condition or the appearance of new urologic symptoms. Compliance is encouraged with any medications and followup testing that is ordered. It is a privilege to participate in the urologic care of your patient. If you have any questions or concerns regarding treatment for the above conditions, or other urologic issues, please do not hesitate to contact me. The office telephone contact is [phone]. Sincerely, Dr Jose Gold MD, [facility] - Urology Compassionate Specialist Care for the Genitourinary System Coding Level of Care Code Est Pt Level 4 (51491) Complex EM visit Add On G2211 Diagnoses Bladder stones N21.0 Recurrent UTI (urinary tract infection) N39.0 Bladder outlet obstruction N32.0 CPT Codes Post Residual Void - PVR CPT Code: 22372-Tmlh Void Residual by ultrasound ([id number])
--- OUTSIDE RECORDS SUMMARY | 2024-08-07 17:45 | XMS_ITS | Continuity of Care Document ---
Author Organization [facility] Address [address] [place] [address]- Care Team Providers Care Lap Cutter Name Role Phone Meagan Krause MD Primary Care Physician Encounter [facility] [place] [facility] Date(s): 07/06/24 - 08/05/[address] [address]- Attending Physician: Edson Mosquera Referring Physician: Cathleen Whittaker Encounter Type: Triage Allergies, Adverse Reactions, Alerts No Known Allergies Immunizations Given and Recorded Vaccine Date Status Refusal Reason [id number] 12y+ bivalent booster vax 06/12/22 Given influenza virus vaccine, inactivated 06/12/22 Give n influenza virus vaccine, inactivated 08/09/21 Give n influenza virus vaccine, inactivated 05/29/18 Give n influenza virus vaccine, inactivated 1 04/08/06 [facility] influenza virus vaccine, inactivated 04/26/05 Give n SARS-CoV-2 (COVID-19) mRNA BNT-162b2 vac 05/25/21 Given SARS-CoV-2 (COVID-19) mRNA BNT-162b2 vac 10/11/20 Given SARS-CoV-2 (COVID-19) mRNA BNT-162b2 vac 09/20/20 Given pneumococcal 23-valent vaccine 2 03/19/12 Given Influenza Inactive (IM) (oldterm) 3 02/23/09 Given tetanus-diphtheria toxoids (Td) 4 12/20/08 Given tetanus-diphtheria toxoids (Td) 05/10/97 Given Pneumococcal Vacc (oldterm) 08/02/05 Given Hepatitis A Vaccine (oldterm) 5 04/07/01 Given Hepatitis A Vaccine (oldterm) 6 05/22/00 Given Hepatitis B Vaccine (old term) 7 04/07/01 Given Hepatitis B Vaccine (old term) 8 11/13/00 Given Hepatitis B Vaccine (old term) 9 05/22/00 Given 1Admin Note: VIS GIVEN 12/07/05 2Admin Note: vis given 03/15/2009 3Admin Note: vis 4Admin Note: vis 11/17/93 5Admin Note: Second dose 6Admin Note: First dose 7Admin Note: Third dose 8Admin Note: Second dose 9Admin Note: First dose Medications acetaminophen 325 mg oral tablet 650 mg, 2, tablet, By Mouth, 3 times a day, PRN, As needed for pain. Not to exceed 6 tablets per day. Use INSTEAD OF naproxen, # 100 tablet, Refills 5, Tot. Refills 5, Maintenance, as needed for fever, 02/22/21 4:06:00 PM EDT, Route to Pharmacy Electronically, [facility], Partial fill upon patient request if the prescription is for a schedule II opioid drug., 168, cm, 12/28/20 10:11:00 EDT, Height, 64, kg, 02/18/20 18:39:00 EDT, Dry Weight Start Date: 02/22/21 Status: Ordered Quantity: 100.0 Unit: tablet Repeat number: 6 Adult Pull-Ups for Men size XS Adult Pull-Ups for Men size XS, See Instructions, # 100 each, Refills 11, Tot. Refills 11, Maintenance, Change 3x per day MICHAEL 99 Dx: R39. 81; N 40.1; R15 Fax to [facility] [phone], 11/21/23 10:52:00 AM EDT, Supply Start Date: 11/21/23 Status: Ordered Quantity: 100.0 Unit: each Repeat number: 12 albuterol CFC free 90 mcg/inh inhalation aerosol 2, puffs, Inhalation, Every 4 hours, PRN, # 1 each, Refills 6, Tot. Refills 6, Maintenance, :15:00 PM EST, Aerosol, Route to Pharmacy Electronically, [id number], [facility], 168, cm, 05/21/23 15:21:00 EST, Height, 56.1, kg, 07/15/22 20:20:00 EST, Dry Weight Start Date: 06/28/23 Status: Ordered Quantity: 1.0 Unit: each Repeat number: 7 ammonium lactate 12% topical cream 1 application, Topically, Daily in AM, # 140 Gm, 11 Refills, Maintenance, 09/19/23 1:07:00 PM EDT, Cream, [facility], Partial fill upon patient request if the prescription is for a schedule II opioid drug., 1 application Topically Daily in AM, 168, cm, 05/21/23 15:21:00 EST, Height,56.1, kg, 07/15/22 20:20:00 EST, Dry Weight Start Date: 09/19/23 Status: Ordered Quantity: 140.0 Unit: g Repeat number: 12 aspirin 81 mg oral delayed release tablet 1 tablet = 81 mg, By Mouth, Daily, # 90 tablet, 3 Refills, Maintenance, 07/18/23 6:52:00 PM EST, CR Tablet, [facility], Partial fill upon patient request if the prescription is for a schedule II opioid drug., 168, cm, 05/21/23 15:21:00 EST, Height, 56.1, kg, 07/15/22 20:20:00 EST, Dry Weight Start Date: 07/18/23 Status: Ordered Quantity: 90.0 Unit: tablet Repeat number: 4 Biktarvy oral tablet 1 tablet, By Mouth, Daily, # 90 tablet, 3 Refills, Maintenance, 12/06/23 5:58:00 PM EDT, Tablet, [facility], 1 tablet By Mouth Daily,x90 days, 168, cm, 11/21/23 10:19:00 EDT, Height, 56.1, kg, 07/15/22 20:20:00 EST, Dry Weight Start Date: 12/06/23 Stop Date: 11/30/24 Status: Ordered Quantity: 90.0 Unit: tablet Repeat number: 4 Cane replacement tips Cane replacement tips, See Instructions, # 24 each, Refills 11, Tot. Refills 11, Maintenance, Disp:6 sets of 4ct ICD 10 R26.9; Z99. 8; R 29.6 Fax to [facility] at [phone], 01/18/22 4:19:00 PM EDT,Supply Start Date: 01/18/22 Status: Ordered Quantity: 24.0 Unit: each Repeat number: 12 cholecalciferol 400 iu oral tablet 1 tablet = 10 mcg, By Mouth, Daily, # 90 tablet, 3 Refills, Maintenance, 09/14/23 11:24:00 AM EDT, Tablet, [facility], Partial fill upon patient request if the prescription is for a schedule II opioid drug., 168, cm, 05/21/23 15:21:00 EST, Height, 56.1, kg, 07/15/22 20:20:00 EST, DryWeight Start Date: 09/14/23 Status: Ordered Quantity: 90.0 Unit: tablet Repeat number: 4 finasteride 5 mg oral tablet 1 tablet = 5 mg, By Mouth, Daily, For prostate - to help urinate more easily., # 90 tablet, 3 Refills, Maintenance, 07/18/23 6:52:00 PM EST, Tablet, [facility], 168, cm, 05/21/23 15:21:00 EST, Height, 56.1, kg, 07/15/22 20:20:00 EST, Dry Weight Start Date: 07/18/23 Status: Ordered Quantity: 90.0 Unit: tablet Repeat number: 4 Lipitor 80 mg oral tablet 1 tablet = 80 mg, By Mouth, Daily, Cholesterol med to prevent strokes/heart disease., # 90 tablet, 3 Refills, Maintenance, 07/18/23 6:52:00 PM EST, Tablet, [facility], 168, cm, 05/21/23 15:21:00 EST, Height, 56.1, kg, 07/15/22 20:20:00 EST, Dry Weight Start Date: 07/18/23 Status: Ordered Quantity: 90.0 Unit: tablet Repeat number: 4 Nutritional supplement - Ensure or Boost Nutritional supplement - Ensure or Boost, See Instructions, # 60 each, Refills 11, Tot. Refills 11,Maintenance, Drink 1 can by mouth up to 2x per day Dx R63. 4; R63. 6 MICHAEL: 99 Fax to [facility] [phone], 11/21/23 10:43:00 AM EDT, Supply Start Date: 11/21/23 Status: Ordered Quantity: 60.0 Unit: each Repeat number: 12 oxymetazoline 0.05% nasal spray 2 sprays, Nares, Both, 2 times a day, Use in event of a severe nosebleed to stop bleeding. Do not use more than 1x per week, # 15 mL, 3 Refills, Maintenance, 01/15/23 5:24:00 PM EDT, [place], [facility], Partial fill upon patient request if the prescription is for a schedule II opioid drug., 2 sprays Nares, Both 2 times a day,Instr:Use in event of a severe nosebleed to stop bleeding.Do not use more than 1x per week, 168, cm, 01/15/23 11:44:00 EDT, Height, 56.1, kg, 07/15/22 20:20:00 EST, Dry Weight Start Date: 01/15/23 Status: Ordered Quantity: 15.0 Unit: mL Repeat number: 4 Quad cane Quad cane, See Instructions, # 1 each, Refills 1, Tot. Refills 1, Maintenance, ICD 10 R29.6; R26.81Ht 168cm, Wt 48kg MICHAEL 99 Fax to [facility] at [phone], 06/11/24 3:29:00 PM EST, Supply Start Date: 06/11/24 Status: Ordered Quantity: 1.0 Unit: each Repeat number: 2 Quad cane Quad cane, See Instructions, # 1 each, Refills 1, Tot. Refills 1, Maintenance, Ht 168cm Wt 58kg Dx:R26.89; R 29.6; M62. 81; I69.30 Fax to [facility], 08/09/21 11:53:00 AM EST, Supply Start Date: 08/09/21 Status: Ordered Quantity: 1.0 Unit: each Repeat number: 2 Rollator Rollator, See Instructions, # 1 each, Refills 0, Tot. Refills 0, Maintenance, ICD 10 R 29.6 Ht 168cm, Wt 42kg; MICHAEL 12 Pls fax to [facility] [phone], 07/06/24 10:29:00 AM EST, Supply Start Date: 07/06/24 Status: Ordered Quantity: 1.0 Unit: each Repeat number: 1 Rollator Rollator, See Instructions, # 1 each, Refills 0, Tot. Refills 0, Maintenance, ICD 10 R 29.6 Ht 168cm, Wt 42kg; MICHAEL 12 Pls fax to [facility] [phone], 07/06/24 10:29:00 AM EST, Supply Start Date: 07/06/24 Status: Ordered Quantity: 1.0 Unit: each Repeat number: 1 senna - oral tablet 2 tablet, By Mouth, Daily at bedtime, PRN for constipation, As needed for constipation, # 180 tablet, 1 Refills, Maintenance, 08/15/22 2:12:00 PM EST, Tablet, [facility], 168, cm, 06/12/22 11:39:00 EST, Height, 56.1, kg, 07/15/22 20:20:00 EST, Dry Weight Start Date: 08/15/22 Status: Ordered Quantity: 180.0 Unit: tablet Repeat number: 2 Traveling Bed Rail from Standard Traveling Bed Rail from Standard, See Instructions, # 1 each, Refills 1, Tot. Refills 1, Maintenance, ICD 10: R29.6; R 26.81 MICHAEL 99. Ht 168cm/ Wt 42kg Pls fax to [facility], 07/23/24 8:53:00 AM EST, Supply Start Date: 07/23/24 Status: Ordered Quantity: 1.0 Unit: each Repeat number: 2 Washable bed pads Washable bed pads, See Instructions, # 3 each, Refills 11, Tot. Refills 11, Maintenance, Change nightly MICHAEL 99 Dx: R39. 81; N 40.1; R15 Fax to [facility] [phone], 11/21/23 10:53:00 AM EDT, Supply Start Date: 11/21/23 Status: Ordered Quantity: 3.0 Unit: each Repeat number: 12 Problem List Condition Confirmation Course Effective Dates Status H ealth Status Informant Gait instability Confirmed Active Abnormal weight loss Confirmed Active Asymptomatic proteinuria 1 Confirmed Active Benign prostatic hyperplasia Confirmed Active Carotid stenosis, symptomatic, with infarction 2 Confirmed Active Cerebrovascular disease Confirmed Active Chronic kidney disease, stage 3 Confirmed Active Cigarette smoker Confirmed Active COVID-19 3 Confirmed 07/20/22 Active Dementia, vascular Confirmed Active Frailty Confirmed Active Glucose intolerance (pre-diabetes) Confirmed Active Hyperlipidemia Confirmed Active Pulmonary nodule Confirmed Active *[id number] Allocations Clerk Shonda Lopez Confirmed Active End of life care Confirmed Active COPD with emphysema Confirmed Active Elevated PSA Confirmed Active Tobacco dependence Confirmed Active Underweight Confirmed Active Bladder stones 4 Confirmed Active Urinary incontinence Confirmed Active Ventricular bigeminy Confirmed Active Right hand weakness Confirmed Active 1will change htn med to lisinopril 2Left carotid. Acute stroke early 12/2019 with resultant right hand weakness. 3Problem added by Discern Expert 4Managed by Dr. Gold, [facility]. Multiple stones removed 10/06/2018. Social History Social History Type Response Tobacco Other: 4-5/DAY. Sex Sex Representation Male (finding) Laboratory * Event Display: Non BH Lab Results Authored Date: * Event Display: Non BH Lab Results Authored Date: * Event Display: Non BH Lab Results Authored Date: Radiology * Event Display: Ultrasound Renal, Non BH Authored Date: US Pelvis * Event Display: Ultrasound Pelvis Authored Date: Patient Care team information Care Team Personnel Name: Denise Esteban RN Position: [facility] RN Member Role: Primary Care Nurse Name: Nicole Suarez RN Position: S RN Member Role: Primary Care Nurse Name: Soni Staples RN Position: S RN Member Role: Primary Care Nurse Name: Meagan Krause MD Position: [facility] Physician - Primary Care Member Role: PCP Address: [address] [place] [address] Telecom: Care Team Related Persons Name: VENUS MEDINA Name: SHAISTA WALDROP Insurance Providers Guarantor name: MUSTAPHA MEDINA Health Plan Information #: 1 Payer: NA Member Number: NA Policy Number: NA Group Number: NA
--- OUTSIDE RECORDS SUMMARY | 2024-08-07 17:45 | XMS_ITS | Continuity of Care Document ---
Author Organization [facility] Address [address] [place] [address]- Care Team Providers Care Manager Agency Name Role Phone Meagan Krause MD Primary Care Physician Encounter [facility] Date(s): 07/01/24 - 07/31/[address] [address]- Encounter Type: Triage Allergies, Adverse Reactions, Alerts No Known Allergies Immunizations Given and Recorded Vaccine Date Status Refusal Reason [id number] 12y+ bivalent booster vax 06/12/22 Given influenza [...] 4:06:00 PM EDT, Route to Pharmacy Electronically, [facility], Partial fill upon patient [...] 40.1; R15 Fax to [facility] [phone], 11/21/23 10:52:00 AM EDT, Supply Start Date: 11/21/23 Status: Ordered Quantity: 100.0 Unit: each Repeat number: 12 albuterol CFC free 90 mcg/inh inhalation aerosol 2, puffs, Inhalation, Every 4 hours, PRN, # 1 each, Refills 6, Tot. Refills 6, Maintenance, :15:00 PM EST, Aerosol, Route to Pharmacy Electronically, [id number], [facility], 168, cm, 05/21/23 15:21:00 EST, Height, 56.1, kg, 07/15/22 20:20:00 EST, Dry Weight Start Date: 06/28/23 Status: Ordered Quantity: 1.0 Unit: each Repeat number: 7 ammonium lactate 12% topical cream 1 application, Topically, Daily in AM, # 140 Gm, 11 Refills, Maintenance, 09/19/23 1:07:00 PM EDT, Cream, [facility], Partial fill upon patient request if [...] Maintenance, 07/18/23 6:52:00 PM EST, CR Tablet, [facility], Partial fill upon patient request if the prescription is for a schedule II opioid drug., 168, cm, 05/21/23 15:21:00 EST, Height, 56.1, kg, 07/15/22 20:20:00 EST, Dry Weight Start Date: 07/18/23 Status: Ordered Quantity: 90.0 Unit: tablet Repeat number: 4 Biktarvy oral tablet 1 tablet, By Mouth, Daily, # 90 tablet, 3 Refills, Maintenance, 12/06/23 5:58:00 PM EDT, Tablet, [facility], 1 tablet By Mouth Daily,x90 days, [...] R26.9; Z99. 8; R 29.6 Fax to [facility] at [phone], 01/18/22 4:19:00 PM EDT,Supply Start Date: 01/18/22 Status: Ordered Quantity: 24.0 Unit: each Repeat number: 12 cholecalciferol 400 iu oral tablet 1 tablet = 10 mcg, By Mouth, Daily, # 90 tablet, 3 Refills, Maintenance, 09/14/23 11:24:00 AM EDT, Tablet, [facility], Partial fill upon patient [...] Refills, Maintenance, 07/18/23 6:52:00 PM EST, Tablet, [facility], 168, cm, 05/21/23 15:21:00 EST, Height, 56.1, kg, 07/15/22 20:20:00 EST, Dry Weight Start Date: 07/18/23 Status: Ordered Quantity: 90.0 Unit: tablet Repeat number: 4 Lipitor 80 mg oral tablet 1 tablet = 80 mg, By Mouth, Daily, Cholesterol med to prevent strokes/heart disease., # 90 tablet, 3 Refills, Maintenance, 07/18/23 6:52:00 PM EST, Tablet, [facility], 168, cm, 05/21/23 15:21:00 EST, Height, [...] MICHAEL: 99 Fax to [facility] [phone], 11/21/23 10:43:00 AM EDT, Supply Start Date: 11/21/23 Status: Ordered Quantity: 60.0 Unit: each Repeat number: 12 oxymetazoline 0.05% nasal spray 2 sprays, Nares, Both, 2 times a day, Use in event of a severe nosebleed to stop bleeding. Do not use more than 1x per week, # 15 mL, 3 Refills, Maintenance, 01/15/23 5:24:00 PM EDT, [place], [facility], Partial fill upon patient [...] 168cm, Wt 48kg MICHAEL 99 Fax to [facility] at [phone], 06/11/24 3:29:00 PM EST, Supply Start Date: [...] 12 Pls fax to [facility] [phone], 07/06/24 10:29:00 AM EST, Supply Start Date: 07/06/24 Status: Ordered Quantity: 1.0 Unit: each Repeat number: 1 Rollator Rollator, See Instructions, # 1 each, Refills 0, Tot. Refills 0, Maintenance, ICD 10 R 29.6 Ht 168cm, Wt 42kg; MICHAEL 12 Pls fax to [facility] [phone], 07/06/24 10:29:00 AM EST, Supply Start Date: 07/06/24 Status: Ordered Quantity: 1.0 Unit: each Repeat number: 1 senna - oral tablet 2 tablet, By Mouth, Daily at bedtime, PRN for constipation, As needed for constipation, # 180 tablet, 1 Refills, Maintenance, 08/15/22 2:12:00 PM EST, Tablet, [facility], 168, cm, 06/12/22 11:39:00 [...] 40.1; R15 Fax to [facility] [phone], 11/21/23 10:53:00 AM EDT, Supply Start Date: [...] Hyperlipidemia Confirmed Active Pulmonary nodule Confirmed Active *[phone] Pitching Coach Shonda Lopez Confirmed Active End of life [...] by Discern Expert 4Managed by Dr. Gold, [facility]. Multiple stones removed 10/06/2018. Social History Social History Type Response Tobacco Other: 4-5/DAY. Sex Sex Representation Male (finding) Patient Care team information Care Team Personnel Name: Denise Esteban RN Position: [facility] RN Member Role: Primary Care Nurse Name: Nicole Suarez RN Position: S RN Member Role: Primary Care Nurse Name: Soni Staples RN Position: S RN Member Role: Primary Care Nurse Name: Meagan Krause MD Position: [facility] Physician - Primary Care Member Role: PCP Address: [address] [place] [address] Telecom: Care Team Related Persons Name: VENUS MEDINA Name: SHAISTA WALDROP Insurance Providers Guarantor name: MUSTAPHA MEDINA Health Plan Information #: 1 Payer: MICHELL Member Number: NA Policy Number: NA Group Number: NA
--- OUTSIDE RECORDS SUMMARY | 2024-08-07 17:45 | XMS_ITS | Clinical Summary ---
Author Organization [facility] ity Address [address] [place] [address] Care Team Providers Care Regulatory Technician Name Role Phone Unavailable Primary Care Provider Unavailabl e Social History Tobacco Use Types Packs/Day Years Used Date Smoking Tobacco: Never Assessed Sex and Gender Information Value Date Recorded Sex Assigned at Not on file Legal Sex Male 8:47 PM EST Gender Identity Not on file Sexual Orientation Not on file Plan of Treatment Health Maintenance Due Date Last Done Comments DTaP,Tdap,and Td Vaccines (1 - Tdap) 1959 Pneumococcal Vaccine: 50+ Ye ars (1 of 1 - PCV) 1990 Zoster Vaccines (1 of 2) 1990 RSV Immunization Patients 60 + Years Old (1 - 1-dose 75+ series) 2015 Cholesterol Screening (Lipid Panel) 05/12/2022 Depression Screening 05/12/2022 Falls Risk Assessment 05/12/2022 Social Influencers of Health Screening 05/12/2022 COVID-19 Vaccine (2023-2 5 season) 2024 Influenza Vaccine (#1) 2024 HIB Vaccines Aged Out No longer eligi ble based on patient's age to complete this topic HPV Vaccines Aged Out No longer eligi ble based on patient's age to complete this topic Hepatitis A Vaccines Aged Out No long er eligible based on patient's age to complete this topic Hepatitis B Vaccines Aged Out No long er eligible based on patient's age to complete this topic IPV Vaccines Aged Out No longer eligi ble based on patient's age to complete this topic MMR Vaccines Aged Out No longer eligi ble based on patient's age to complete this topic Meningococcal ACWY Vaccine Aged Out N o longer eligible based on patient's age to complete this topic Meningococcal B Vacine Aged Out No lo nger eligible based on patient's age to complete this topic RSV Immunization Patients Un nerissa 20 months Aged Out No longer eligible b ased on patient's age to complete this topic Varicella Vaccines Aged Out No longer eligible based on patient's age to complete this topic
== END 2024-08-07 16:17 | disposition home or self-care (01) ==
LOC: HO.HUSH 15:45
PROVIDERS: PCP Internal Medicine; Visit Provider Urology
DX: N21.0 Calculus in bladder (principal); N39.0 Urinary tract infection, site not specified; N32.0 Bladder-neck obstruction
CPT/HCPCS: 99024

== ENCOUNTER → 2024-08-07 15:45 | Outpatient (BNVA) | payer OTHER, SELFPAY | PROVIDERS: PCP Internal Medicine; Visit Provider Urology | DX: N21.0 Calculus in bladder (principal); N39.0 Urinary tract infection, site not specified; N32.0 Bladder-neck obstruction | CPT/HCPCS: 51798; 99212 ==

== ENCOUNTER 2025-01-15 15:48 | Outpatient (AMB) | payer OTHER, SELFPAY ==
--- NOTE | 2025-01-15 15:50 | A.OFFVIS_ITS ---
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 He is a patient of Dr. Dominik Harris. He is seen for the following urologic conditions - lower urinary tract symptoms - UTI - elevated PSA - bladder stones Has been on finasteride with vitamin-C and methenamine No UTI since last visit Continue to encourage fluid intake Six-month follow-up check bladder Recurrent urinary tract infection Responded well to antibiotics for UTI at last visit - prior culture mixed Imaging with question of 1 cm bladder stone Elevated PSA 10.4 in setting of UTI and bladder stone Background of dementia Cystoscopy shows grade 2/3 trabeculation Debris within the bladder that was probably read as stone on ultrasound Evidence of prior TURP - 2018 [facility] Medical History HIV (human immunodeficiency virus infection) Right inguinal hernia Urinary incontinence Underweight Tobacco dependence Right hand weakness Pulmonary nodule Inguinal hernia Hyperlipidemia Glucose intolerance Gait instability Frailty Diverticulosis of sigmoid colon Dementia, vascular COPD with emphysema Cigarette smoker Chronic kidney disease, stage 3 Cerebrovascular disease Carotid stenosis Bladder stones Benign prostatic hyperplasia Asymptomatic proteinuria Abnormal weight loss Surgical History History of left-sided carotid endarterectomy History of appendectomy History of inguinal herniorrhaphy Social History Housing: Apartment Patient Tobacco Use Status: Current everyday Tobacco user Tobacco use type: Cigarette Cigarettes Per Day: 5 Second Hand Smoke Exposure: No service: No Review of Systems Const Denies chills and Denies fever(s) Card Reports no additional complaints and Denies syncope Resp Denies cough GI Denies abdominal pain and Denies heartburn Reports as per HPI and Denies change in libido Neuro Denies syncope Psych Denies change in libido Endo Denies change in libido Physical Exam Const General: cooperative, healthy appearing, comfortable and no acute distress Orientation/consciousness: patient oriented x3 HEENT Face and sinus: Yes normal facial exam Mouth: moist mucous membranes Neck Neck: Yes normal visual inspection, Yes full ROM and Yes trachea midline Chest Chest palpation & inspection: normal inspection of the chest Resp Effort & Inspection: normal respiratory effort, able to speak in complete sentences and no respiratory distress GI Inspection: Yes normal to inspection Back/Spine/Pelvis Cervical Spine: normal cervical lordosis Thoracic/Lumbar Spine: thoracic and lumbar spine normal to inspection Skin General skin exam: no rashes or lesions noted Neuro General: patient oriented x3, gait normal, tone normal and moves all extremities Extrem General: Yes normal to inspection and Yes capillary refill normal Assessment & Plan Assessment & Plan (1) Bladder stones: Code(s): N21.0 - Calculus in bladder Category: Medical (2) Recurrent UTI (urinary tract infection): Code(s): N39.0 - Urinary tract infection, site not specified Category: Medical Plan Six-month follow-up Medications: New methenamine hippurate 1 g PO DAILY 90 tabs 1RF 90 days N39.0 - Urinary tract infection, site not specified Changed From finasteride 5 mg PO DAILY N39.0 - Urinary tract infection, site not specified To finasteride 5 mg PO DAILY 90 tabs 1RF 90 days N39.0 - Urinary tract infection, site not specified Refilled ascorbic acid (vitamin C) 1 g PO DAILY 90 tabs 1RF 90 days N39.0 - Urinary tract infection, site not specified Patient Instructions: This note is constructed using voice recognition software. While every effort has been made to ensure accuracy billing manager errors may have been included. Imaging studies, laboratory and physical exam results were discussed and reviewed in detail. No major barriers to patient understanding were identified. An opportunity to ask questions regarding the treatment plan was provided. All questions were answered. The patient expressed understanding and agreement with the above treatment plan. The patient is aware they should contact our office by phone for worsening of their current condition or the appearance of new urologic symptoms. Compliance is encouraged with any medications and followup testing that is ordered. It is a privilege to participate in the urologic care of your patient. If you have any questions or concerns regarding treatment for the above conditions, or other urologic issues, please do not hesitate to contact me. The office telephone contact is [phone]. Sincerely, Dr Jose Gold MD, [facility] - Urology Compassionate Specialist Care for the Genitourinary System Coding Level of Care Code Est Pt Level 3 (96535) Complex EM visit Add On G2211 Diagnoses Bladder stones N21.0 Recurrent UTI (urinary tract infection) N39.0
--- OUTSIDE RECORDS SUMMARY | 2025-01-15 15:51 | XMS_ITS | Clinical Summary ---
Author Organization [facility] [place] [facility] Address [address] [place] [address] Phone Care Team Providers Care [employer] Name Role Phone Meagan Krause MD Primary Care Provider [phone] Allergies No known active allergies Encounters Date Type Department Care Team Description 12/14/2024 7:48 AM EDT - 12/14/2024 11:59 PM EDT Hospital Encounter [facility] Orth[facility] Xray [address] [place] [address] Pain Discharge Disposition: Home or Self Care 11/26/2024 8:50 PM EDT - 11/26/2024 10:16 PM EDT Emergency [facility] Emergency [address] [place] [address] Sprain of interphalangeal joint of right middle finger, initial encounter (Primary Dx) Discharge Disposition: Home or Self Care from Last 3 Months Social History Tobacco Use Types Packs/Day Years Used Date Smoking Tobacco: Never Assessed Sex and Gender Information Value Date Recorded Sex Assigned at Not on file Legal Sex Male 8:47 PM EST Gender Identity Not on file Sexual Orientation Not on file Last Filed Vital Signs Vital Sign Reading Time Taken Comments Blood Pressure 113/80 11/26/2024 4:58 PM EDT Pulse 92 11/26/2024 4:58 PM EDT Temperature 36.3 C (97.4 F) 11/26/2024 4:58 PM EDT Respiratory Rate 18 11/26/2024 4:58 PM EDT Oxygen Saturation 97% 11/26/2024 4:58 PM EDT Inhaled Oxygen Concentration - - Weight 49.9 kg (110 lb) 11/26/2024 4:58 PM EDT Height 165.1 cm (5' 5 ) 11/26/2024 4:58 PM EDT Body Mass Index 18.3 11/26/2024 4:58 PM EDT Plan of Treatment Health Maintenance Due Date Last Done Comments Zoster Vaccines (1 of 2) 1990 Pneumococcal Vaccine: 50+ Years (2 of 2 - PCV) 03/19/2013 03/19/2012, 08/02/2005 RSV Immunization Adult Patients (1 - 1-dose 75+ series) 2015 DTaP,Tdap,and Td Vaccines (3 - Td or Tdap) 12/20/2018 12/20/2008, 05/10/1997 Cholesterol Screening (Lipid Panel) 05/12/2022 Falls Risk Assessment 05/12/2022 Medicare Annual Wellness Visit 05/12/2022 Social Influencers of Health Screening 05/12/2022 COVID-19 Vaccine ( season) 2024 06/12/2022, 05/25/2021, 10/11/2020, Additional history exists Depression Screening 06/10/2024 Influenza Vaccine (#1) 2025 , 08/09/2021, 05/29/2018, Additional history exists Hepatitis A Vaccines Aged Out 04/07/2001, 05/22/20 00 No longer eligible based on patient's age to complete this topic Hepatitis B Vaccines Completed 04/07/2001, 11/13/2000, 05/22/2000 HIB Vaccines Aged Out No longer eligi [...] age to complete this topic Meningococcal B Vaccine Aged Out No l onger eligible based on patient's age to complete this topic RSV Immunization Patients Under 20 months Aged Out No longer eligible based on patient's age to complete this topic Varicella Vaccines Aged Out No longer eligible based on patient's age to complete this topic Procedures Procedure Name Priority Date/Time Associated Diagnosis Comments XR FINGERS 2+ VIEWS RIGHT Routine 12/14/2024 9:42 AM EDT Pain XR HAND 3+ VIEWS RIGHT STAT 11/26/2024 5:20 PM EDT from Last 3 Months Results * XR Fingers 2+ Views Right (12/14/2024 9:42 AM EDT) Narrative RIS PACS/VR - 12/14/2024 9:43 AM EDT This order has been auto-finalized and does not contain a result. us Kenneth Chaudhary MD IMG XR PROCEDURES Final R esult RIS PACS/VR * XR Hand 3+ Views Right (11/26/2024 5:20 PM EDT) Anatomical Region Laterality Modality Upper Extremities, Hand Right Radiogra phic Imaging 11/27/2024 10:5 9 AM EDT Impressions 11/27/2024 11:10 AM EDT Limited study. Suspect intra-articular fracture involving the base of the third middle phalanx Telephone report to the emergency department at 1108 on 11/27/24 -------- FINAL REPORT -------- Dictated By: Marito Garner Dictated Date: 11/27/2024 10:59 ET Assigned Physician: Marito Garner Reviewed and Electronically Signed By: Marito Garner Signed Date: 11/27/2024 11:10 ET Workstation ID: [id number] Transcribed By: Self Edit Transcribed Date: 11/27/2024 10:59 ET Narrative 11/27/2024 11:10 AM EDT EXAMINATION: RIGHT HAND CLINICAL INFORMATION: Pain. Mechanical fall COMPARISON: None. TECHNIQUE: 3 views right hand FINDINGS: Nonstandard projections of the hand. Limited assessment of the carpal metacarpal alignment. I suspect intra-articular fracture involving the third middle phalanx with surrounding soft tissue swelling. No other definite acute fracture or subluxation. Procedure Note Marito Garner MD - 11/27/2024 EXAMINATION: RIGHT HAND CLINICAL INFORMATION: Pain. Mechanical fall COMPARISON: None. TECHNIQUE: 3 views right hand FINDINGS: Nonstandard projections of the hand. Limited assessment of the carpalmetacarpal alignment. I suspect intra-articular fracture involving the third middle phalanx withsurrounding soft tissue swelling. No other definite acute fracture or subluxation. IMPRESSION: Limited study. Suspect intra-articular fracture involving the base of the third middlephalanx Telephone report to the emergency department at 1108 on 11/27/24 -------- FINAL REPORT -------- Dictated By: Marito Garner Dictated Date: 11/27/2024 10:59 ET Assigned Physician: Marito Garner Reviewed and Electronically Signed By: Marito Garner Signed Date: 11/27/2024 11:10 ET Workstation ID: [id number] Transcribed By: Self Edit Transcribed Date: 11/27/2024 10:59 ET Mark Jo Sosa MD IMG XR PROCEDURES Final Result from Last 3 Months Insurance [employer] Member Subscriber Plan / Payer (Ef fective 2024-Present) Name:Migue Agarwal Relation to Subscriber:Self Name:Migue Agarwal Payer ID:[id number] Group ID:Not on file Type:Not on file Address: [place] [address] [place] [address] Care Teams [employer] Relationship Specialty Start Date End Date Meagan Krause MD [address] [address] PCP - General Internal Medicine 11/26/24
== END 2025-01-15 16:16 | disposition home or self-care (01) ==
LOC: HO.HUSH 15:49
PROVIDERS: PCP Internal Medicine; Visit Provider Urology
DX: N21.0 Calculus in bladder (principal); N39.0 Urinary tract infection, site not specified
CPT/HCPCS: 99213; G2211

== ENCOUNTER → 2025-01-15 15:48 | Outpatient (BNVA) | payer OTHER, SELFPAY | PROVIDERS: PCP Internal Medicine; Visit Provider Urology | DX: N21.0 Calculus in bladder (principal); N39.0 Urinary tract infection, site not specified | CPT/HCPCS: 99212 ==